=== PATIENT | female | born 1970 | race Caucasian/White ===

== ENCOUNTER 2016-12-08 19:01 | Emergency (ER) | payer OTHER ==
[~2016-12-08] VITALS: Ht 149.9 cm; Wt 47.6 kg
--- NOTE | 2016-12-08 19:43 | ED.ADGEN ---
Adult General [facility] HPI Patient is a 46-year-old female, with no significant past history, who presents to the emergency department with a complaint of vision loss that began around 5: 30 this afternoon. Patient states that she was watching TV after a day of work, when she noted that the left lower field of her vision was absent. She states it was like "a sort of blurry Z like floater", states that she had full vision in the upper left eye, and in the medial aspect as far she can tell, with normal vision in the right eye fully. She states that it lasted for about an hour and a half. At this time she denies any visual deficits. She denies any weakness, numbness or tingling, any nausea or vomiting, any chest pain or shortness of breath, any injuries, states that she does feel as though she has "pressure" in her head right now. States that her mother did have a stroke at a young age, although she is uncertain exactly how old she was. She does not take any medications, denies any injuries, any similar symptoms previously. Review of Systems Review of Systems Constitutional: Denies fever or chills [] Eyes: Denies change in visual acuity, redness, or eye pain [] HENT: Denies nasal congestion or sore throat [] Respiratory: Denies cough or shortness of breath [] Cardiovascular: No additional information not addressed in HPI [] GI: Denies abdominal pain, nausea, vomiting, bloody stools or diarrhea [] : Denies dysuria or hematuria [] Musculoskeletal: Denies back pain or joint pain [] Integument: Denies rash or skin lesions [] Neurologic: Denies focal weakness or sensory changes. Left lower field vision loss. Endocrine: Denies polyuria or polydipsia [] Allergies Allergies Allergies Coded Allergies Type Severity Reaction Last Updated Verified No Known Drug Allergies 12/08/16 No Physical Exam Physical Exam Constitutional: Well developed, well nourished, no acute distress, non-toxic appearance. [] HENT: Normocephalic, atraumatic, bilateral external ears normal, oropharynx moist, no oral exudates, nose normal. [] Eyes: PERRLA, EOMI, conjunctiva normal, no discharge. [] Neck: Normal range of motion, no tenderness, supple, no stridor. [] Cardiovascular:Heart rate regular rhythm, no murmur, S1, S2, rubs or gallops. [] Lungs & Thorax: Bilateral breath sounds clear to auscultation, no wheezing, rhonchi, rales. No chest wall tenderness or crepitus. Abdomen: Bowel sounds normal, soft, no tenderness, no rebound, rigidity, no guarding, no masses, no pulsatile masses. [] Skin: Warm, dry, no erythema, no rash. [] Back: No tenderness, no CVA tenderness. [] Extremities: No tenderness, no cyanosis, no clubbing, ROM intact, no edema. [] Neurologic: Alert and oriented X 3, normal motor function, normal sensory function, no focal deficits noted. [] Psychologic: Affect normal, judgement normal, mood normal. [] Current Patient Data Vital Signs Vital Signs Date Time Temp Pulse Resp B/P (MAP) Pulse Ox O2 Delivery O2 Flow Rate FiO2 12/08/16 19:10 98.3 79 20 99 Room Air Lab Results Laboratory Tests Test 12/08/16 19:10 12/08/16 19:35 Urine Collection Type Unknown Urine Color Straw Urine Clarity Clear Urine pH 6.[address] <=1.005 Urine Protein Neg (NEG-TRACE) Urine Glucose (UA) Neg mg/dL (NEG) Urine Ketones (Stick) Neg mg/dL (NEG) Urine Blood Large (NEG) Urine Nitrite Neg (NEG) Urine Bilirubin Neg (NEG) Urine Urobilinogen Dipstick 0.2 mg/dL (0.2 mg/dL) Urine Leukocyte Esterase Neg (NEG) Urine RBC 11-20 /HPF (0-2) Urine WBC Occ /HPF (0-4) Urine Squamous Epithelial Cells Occ /LPF Urine Bacteria 0 /HPF (0-FEW) White Blood Count 9.1 x10^3/uL (4.0-11.0) Red Blood Count 4.44 x10^6/uL (3.50-5.40) Hemoglobin 13.3 g/dL (12.0-15.5) Hematocrit 40.0 % (36.0-47.0) Mean Corpuscular Volume 90 fL (79-100) Mean Corpuscular Hemoglobin 30 pg (25-35) Mean Corpuscular Hemoglobin Concent 33 g/dL (31-37) Red Cell Distribution Width 12.9 % (11.5-14.5) Platelet Count 389 x10^3/uL (140-400) Neutrophils (%) (Auto) 53 % (31-73) Lymphocytes (%) (Auto) 36 % (24-48) Monocytes (%) (Auto) 6 % (0-9) Eosinophils (%) (Auto) 3 % (0-3) Basophils (%) (Auto) 1 % (0-3) Neutrophils # (Auto) 4.9 x10^3uL (1.8-7.7) Lymphocytes # (Auto) 3.3 x10^3/uL (1.0-4.8) Monocytes # (Auto) 0.6 x10^3/uL (0.0-1.1) Eosinophils # (Auto) 0.3 x10^3/uL (0.0-0.7) Basophils # (Auto) 0.1 x10^3/uL (0.0-0.2) Sodium Level 143 mmol/L (136-145) Potassium Level 3.3 mmol/L (3.5-5.1) L Chloride Level 105 mmol/L (98-107) Carbon Dioxide Level 27 mmol/L (21-32) Anion Gap 11 (6-14) Blood Urea Nitrogen 9 mg/dL (7-20) Creatinine 0.8 mg/dL (0.6-1.0) Estimated GFR (Cockcroft-Gault) 76.6 BUN/Creatinine Ratio 11 (6-20) Glucose Level 96 mg/dL (70-99) Calcium Level 8.7 mg/dL (8.5-10.1) Total Bilirubin 0.3 mg/dL (0.2-1.0) Aspartate Amino Transferase (AST) 11 U/L (15-37) L Alanine Aminotransferase (ALT) 14 U/L (14-59) Alkaline Phosphatase 55 U/L (46-116) Troponin I Quantitative < 0.017 ng/mL (0-0.055) Total Protein 7.2 g/dL (6.4-8.2) Albumin 4.0 g/dL (3.4-5.0) Albumin/Globulin Ratio 1.3 (1.0-1.7) Urine Opiates Screen Neg (NEG) Urine Methadone Screen Neg (NEG) Urine Barbiturates Neg (NEG) Urine Phencyclidine Screen Neg (NEG) Urine Amphetamine/Methamphetamine Neg (NEG) Urine Benzodiazepines Screen Neg (NEG) Urine Cocaine Screen Neg (NEG) Urine Cannabinoids Screen Neg (NEG) Urine Ethyl Alcohol Neg (NEG) EKG EKG EC: Sinus rhythm, heart rate 72 beats are minute, upright axis, QTC of 413, [place] 134, QR 78, patient with contour normality is noted in the anterior leads, but no ST elevations or depressions, no evidence of acute ST abnormalities. As interpreted by me. No prior for comparison. Radiology/Procedures Radiology/Procedures [][address] [address] IMAGING REPORT Signed PATIENT: JULIETA SANTOYO ACCOUNT: [id number] : 1970 LOCATION: ER AGE: 46 SEX: F EXAM STATUS: REG ER ORD. PHYSICIAN: SAKINA MARTINEZ DO REASON: Vision loss, L lateral PROCEDURE: CT HEAD WO CONTRAST CT HEAD WO CONTRAST History: Temporary left sided peripheral vision loss tonight. Comparison: None. Technique: Noncontrast [address] images were acquired from the skull base to the vertex. Exposure: One or more of the following individualized dose reduction techniques were utilized for this examination: 1. Automated exposure control 2. Adjustment of the mA and/or kV according to patient size 3. Use of iterative reconstruction technique. Findings: There is mild motion. No acute extra-axial or parenchymal hemorrhage is identified. There is no significant intra-axial mass effect, midline shift, or extra-axial fluid collection. The hill-white differentiation of the major vascular territories is preserved. The ventricles, sulci, and cisterns are within normal limits in size and configuration. The mastoid air cells and the visualized paranasal sinuses are aerated. No acute calvarial abnormality is identified. Impression: 1. No acute intracranial abnormality is identified. If there is concern for evolving or acute ischemia, followup CT or MRI could be beneficial. Electronically signed by: Ned Barrera MD (12/08/2016 8:03 PM) [facility] DICTATED AND SIGNED BY: NED BARRERA MD DATE: 12/08/162000 CC: JULIETA DODGE FUNDRAISING SALE REPRESENTATIVE; SAKINA MARTINEZ DO ~ Course & Med Decision Making Course & Med Decision Making Pertinent Labs and Imaging studies reviewed. (See chart for details) Patient with an NIH stroke scale of 0 upon arrival to the emergency department. Received head CT which did not reveal any concerning findings. However, based on patient's report of visual deficits, possible hemianopsia, patient is agreeable for transfer to [facility] for additional evaluation for TIA, other potential neurologic process that would cause this temporary loss of vision, which she best evaluated by MRI in conjunction with a neurology consultation other evaluation. Patient is agreeable this plan after several discussions at bedside, regarding need for her dogs to be cared for. Patient's is currently [place], as he is in the , patient is a friend will be able to care for her dogs was at bedside discussing this with her. Written consent from patient obtained, patient remained stable and comfortable in the ED without recurrence of symptoms. I did speak with Dr Levy of internal medicine, patient accepted to her service as a full admission to the medical telemetry floor for evaluation as stated for transfer to [facility]. Patient remains stable and comfortable at time of transport via EMS from the ED. Final Impression Final Impression [] Problems: Dragon Disclaimer Dragon Disclaimer This electronic medical record was generated, in whole or in part, using a voice recognition dictation system. Departure: Impression: Primary Impression: TIA (transient ischemic attack) Disposition: 02 XFER SHT-TRM HOSP Condition: STABLE SAKINA MARTINEZ DO Dec 08, 2016 19:43
[2016-12-08 19:55] LABS: BASO # 0.1 x10^3/uL (0.0-0.2); BASO % 1 % (0-3); EOS # 0.3 x10^3/uL (0.0-0.7); EOS % 3 % (0-3); HEMOGLOBIN 13.3 g/dL (12.0-15.5); LYMPH # 3.3 x10^3/uL (1.0-4.8); LYMPH % 36 % (24-48); MEAN CORPUSCULAR HEMOGLOBIN 30 pg (25-35); MEAN CORPUSCULAR HGB CONC 33 g/dL (31-37); MEAN CORPUSCULAR VOLUME 90 fL (79-100); MONO # 0.6 x10^3/uL (0.0-1.1); MONO % 6 % (0-9); NEUT # 4.9 x10^3uL (1.8-7.7); NEUT % 53 % (31-73); PLATELET COUNT 389 x10^3/uL (140-400); RED BLOOD COUNT 4.44 x10^6/uL (3.50-5.40); RED CELL DISTRIBUTION WIDTH 12.9 % (11.5-14.5); WHITE BLOOD COUNT 9.1 x10^3/uL (4.0-11.0)
[2016-12-08 20:01] LABS: BARBITURATES NEG (NEG); BENZODIAZEPINES NEG (NEG); CANNABINOIDS NEG (NEG); COCAINE NEG (NEG); METHADONE NEG (NEG); OPIATES NEG (NEG); PHENCYCLIDINE NEG (NEG)
--- NOTE | 2016-12-08 20:06 | RAD ---
CT HEAD WO CONTRAST History: Temporary left sided peripheral vision loss tonight. Comparison: None. Technique: Noncontrast [address] images were acquired from the skull base to the vertex. Exposure: One or more of the following individualized dose reduction techniques were utilized for this examination: 1. Automated exposure control 2. Adjustment of the mA and/or kV according to patient size 3. Use of iterative reconstruction technique. Findings: There is mild motion. No acute extra-axial or parenchymal hemorrhage is identified. There is no significant intra-axial mass effect, midline shift, or extra-axial fluid collection. The hill-white differentiation of the major vascular territories is preserved. The ventricles, sulci, and cisterns are within normal limits in size and configuration. The mastoid air cells and the visualized paranasal sinuses are aerated. No acute calvarial abnormality is identified. Impression: 1. No acute intracranial abnormality is identified. If there is concern for evolving or acute ischemia, followup CT or MRI could be beneficial. Electronically signed by: Ned aMrc MD (12/08/2016 8:03 PM) [facility]
[2016-12-08 20:09] LABS: ALBUMIN/GLOBULIN RATIO 1.3 (1.0-1.7); CALCIUM 8.7 mg/dL (8.5-10.1); CREATININE 0.8 mg/dL (0.6-1.0); GFR 76.6; POTASSIUM 3.3 mmol/L (3.5-5.1); TOTAL BILIRUBIN 0.3 mg/dL (0.2-1.0); TOTAL PROTEIN 7.2 g/dL (6.4-8.2)
[2016-12-08 20:12] LABS: AMPHETAMINE/METHAMPHETAMINE NEG (NEG)
[2016-12-08 21:30] VITALS: BP 132/86
--- NOTE | 2016-12-08 21:54 | EKG ---
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
[2016-12-08 22:22] LABS: BACTERIA,URINE 0 /HPF (0-FEW); BILIRUBIN,URINE NEG (NEG); CLARITY,URINE CLEAR; COLOR,URINE STRAW; GLUCOSE,URINE NEG (NEG); NITRITE,URINE NEG (NEG); SQUAMOUS EPITHELIAL CELL,UR OCC /LPF; UROBILINOGEN,URINE 0.2 mg/dL (0.2 mg/dL); WBC,URINE OCC /HPF (0-4)
== END 2016-12-08 23:13 | disposition short-term general hospital (02) ==
LOC: ER 19:01
DX: G45.9 Transient cerebral ischemic attack, unspecified (principal); R29.700 NIHSS score 0; Z82.3 Family history of stroke
CPT/HCPCS: 36415; 70450; 80053; 80307; 81001; 84484; 85025; 93005; 99285-25; G0479

== ENCOUNTER 2016-12-13 16:19 | Emergency (ER) | payer OTHER ==
[~2016-12-13] VITALS: Ht 149.9 cm; Wt 47.6 kg
[2016-12-13 16:27] VITALS: BP 158/96
[2016-12-13] MEDS ORDERED: LIDOCAINE WITH 8.4% SOD BICARB 3 ML DISP.SYRIN. IJ ONE (16:55)
[2016-12-13] MEDS ORDERED: BACITRACIN/POLYMYXIN B TOPICAL OINT 15GM TUBE. TP ONE (17:45)
--- NOTE | 2016-12-13 18:04 | PHYS DOC ---
Past History Past Medical History: Hypothyroid, Migraines Past Surgical History: Appendectomy Alcohol Use: None Drug Use: None Adult General Chief Complaint Chief Complaint: LACERATION/AVULSION HPI HPI Patient is a 46-year-old female who presents with a laceration to her left great toe. The patient was wearing closed toe sandals (Keen) and carrying a glass jar with dog food in it, when she bumped into the washer and the bottom broke out of the glass jar and fell onto her foot. It was 1 big chunk of glass, not small amounts of shattered glass. She denies other injury. Her tetanus is up -to-date. She is in good health. No diabetes. Review of Systems Review of Systems Musculoskeletal: Denies other injury Integument: As in history of present illness Neurologic: She was recently seen here for some eye complaints and is following up with a specialist Current Medications Current Medications Current Medications Medications (Trade) Dose Ordered Sig/Ewelina Start Time Stop Time Status Last Admin Dose Admin Bacitracin/ Polymyxin B Sulfate (Polysporin) 1 lety 1X ONCE 12/13/16 17:45 12/13/16 17:47 DC Lidocaine/Sodium Bicarbonate (Buffered Lidocaine 1%) 3 ml 1X ONCE 12/13/16 16:55 12/13/16 16:56 DC 12/13/16 17:08 3 ML Allergies Allergies Allergies Coded Allergies Type Severity Reaction Last Updated Verified No Known Drug Allergies 12/08/16 No Physical Exam Physical Exam Constitutional: Well developed, well nourished, no acute distress, non-toxic appearance. [] HENT: Normocephalic, atraumatic, bilateral external ears normal, nose normal. [] Eyes: conjunctiva normal, no discharge. [] Neck: Normal range of motion, no stridor. [] Skin: Warm, dry, no erythema, no rash. [] Extremities: Left foot: There is a 1.5 cm linear laceration on the great toe dorsal aspect, approximately over the IP joint. There is minimal swelling, no deformity. The toenail is not injured. There is a less than 1 cm linear very superficial laceration on the second toe, no swelling or deformity. Neurologic: Alert and oriented X 3, normal motor function, normal sensory function, no focal deficits noted. [] Current Patient Data Vital Signs Vital Signs Date Time Temp Pulse Resp B/P (MAP) Pulse Ox O2 Delivery O2 Flow Rate FiO2 12/13/16 16:27 97.8 76 20 98 Room Air EKG EKG [] Radiology/Procedures Radiology/Procedures X-ray of the toes of the left foot read by me. No acute fracture. Procedure: Left great toe laceration repair by me Skin was prepped with Betadine, laceration was anesthetized with 1% buffered lidocaine. Laceration was irrigated with a splash shield. Laceration was explored. It goes into the subcutaneous tissues but no deeper structures are involved or injured. Laceration was closed with 3 simple interrupted sutures of 4-0 Prolene. Good result. Bandaged by ED nursing staff. [] Course & Med Decision Making Course & Med Decision Making Pertinent Labs and Imaging studies reviewed. (See chart for details) 46-year-old female with a laceration to the left great toe, no concern for retained foreign body, there were no splinters or shards of glass. X-ray negative for fracture. Laceration was repaired. See instructions for plan. [] Dragon Disclaimer Dragon Disclaimer This chart was dictated in whole or in part using Voice Recognition software in a busy, high-work load, and often noisy Emergency Department environment. It may contain unintended and wholly unrecognized errors or omissions. Departure Departure: Impression: Primary Impression: Laceration of left great toe Disposition: 01 HOME, SELF-CARE Condition: STABLE Referrals: UJLIETA DODGE APRN (PCP) Patient Instructions: Laceration Care, Adult, [id number] Additional Instructions: Leave the dressing on and keep it dry for 48 hours if possible. Then you may remove it and wash briefly in the shower, pat dry and air dry. Reapply antibiotic ointment or Vaseline and a Band-Aid. You may leave it open to air a couple of times a day if it seems to be too damp. Stitches should be removed in about 2 weeks, at your doctor's office or may return here. Elevate, ice for pain and swelling. Ibuprofen 400 mg every 6 hours as needed for pain. TRAVIS ARITA MD Dec 13, 2016 18:04
--- NOTE | 2016-12-14 08:22 | RAD ---
Left great toe, 3 views, 12/13/2016: History: Injury No fracture or dislocation is identified. The soft tissues are unremarkable. IMPRESSION: No acute abnormality is detected.
== END 2016-12-13 18:08 | disposition home or self-care (01) ==
LOC: ER 16:19
DX: S91.112A Laceration without foreign body of left great toe without damage to nail, initial encounter (principal); G43.909 Migraine, unspecified, not intractable, without status migrainosus; E03.9 Hypothyroidism, unspecified; W25.XXXA Contact with sharp glass, initial encounter; Y93.89 Activity, other specified; Y99.8 Other external cause status; Y92.89 Other specified places as the place of occurrence of the external cause
CPT/HCPCS: 12001; 73660; 99284-25

== ENCOUNTER → 2020-03-29 | Outpatient (CLI) | payer OTHER ==
--- NOTE | 2020-03-30 07:56 | RAD ---
CT of the chest without contrast: Clinical History: Cough. Axial helical images of the chest were obtained without contrast. The lungs and pleural margins are clear. There is no mediastinal or hilar lymphadenopathy. Impression: No significant findings. PQRS Compliance Statement: One or more of the following individualized dose reduction techniques were utilized for this examination: 1. Automated exposure control 2. Adjustment of the mA and/or kV according to patient size 3. Use of iterative reconstruction technique Electronically signed by: Alonzo Parker III, MD (03/30/2020 7:53 AM) [facility]
== END ==
LOC: CT 13:45
PROVIDERS: ATTEND Family Medicine
DX: M54.6 Pain in thoracic spine (principal)
CPT/HCPCS: 71250